=== PATIENT | female | born 1980 | race Caucasian/White ===

== ENCOUNTER 2017-02-24 11:32 | Emergency (ER) | payer SELFPAY ==
[~2017-02-24 11:32] MED LIST: AMOX1TAB61 PO; ARIP10TA9 PO; ARIP15TA36 PO; AZIT250T PO; CEPH-264 PO; ESCITALOPRAM OX10 MG PO; HYDR-971 PO; LAMO100T PO; METF500T4 PO; PRED50TA PO
[2017-02-24 11:35] VITALS: BP 165/110
[2017-02-24] MEDS ORDERED: HYDROmorphone PF 1 MG/ML DISP.SYRIN IM ONE (12:15)
[2017-02-24] MEDS ORDERED: HYDR-2758 PO (12:18)
--- NOTE | 2017-02-24 12:18 | PHYS DOC ---
Past History Past Medical History: Bipolar, Other Past Surgical History: Other Alcohol Use: Occasionally Drug Use: None Adult General Chief Complaint Chief Complaint: LOWER BACK PAIN OR INJURY HPI HPI 36-year-old female presenting to the emergency department today after having pain in her lower back that started 24 hours ago. She denies any recent trauma. The pain is sharp worse after heavy lifting nonradiating intermittent and without alleviating factors. She denies urinary incontinence, perineal paresthesias, numbness or weakness in her legs. Review of systems is negative for nausea vomiting fevers chills. All other review of systems is negative unless otherwise noted in history of present illness. ED course: 36-year-old female presenting with lower back pain. Atraumatic. She denied dysuria or polyuria. No symptoms of UTI. test negative. Sounds musculoskeletal in origin. Examination of the back shows no step-offs abrasions lacerations or ecchymosis or fluctuant masses. No cellulitis present. Patient was provided with oral pain medication and subsequent discharged home to follow- up with her PCP. The patient was then discharged home in stable condition to follow up with their primary care physician over the next 2-3 days. They were to return if their symptoms worsened or if they were concerned for any reason. Vqfr-[id number] discharge instructions and return precautions were given. Patient' s questions were answered to their satisfaction. Patient is comfortable plan. Review of Systems Review of Systems SEE ABOVE. Current Medications Current Medications Current Medications Medications (Trade) Dose Ordered Sig/[facility] Start Time Stop Time Status Last Admin Dose Admin Hydromorphone HCl (Dilaudid) 0.5 mg 1X ONCE 02/24/17 12:15 02/24/17 12:16 DC Allergies Allergies Allergies Coded Allergies Type Severity Reaction Last Updated Verified Penicillins Allergy Unknown 03/06/16 Yes carbamazepine Allergy Unknown 03/06/16 Yes latex Allergy Unknown 01/18/16 Yes levetiracetam Allergy Unknown 03/06/16 Yes lidocaine Allergy Unknown SEIZURES 03/06/16 Yes Physical Exam Physical Exam See above Constitutional: Well developed, well nourished, no acute distress, non-toxic appearance. [] HENT: Normocephalic, atraumatic, bilateral external ears normal, oropharynx moist, no oral exudates, nose normal. [] Eyes: PERRLA, EOMI, conjunctiva normal, no discharge. [] Neck: Normal range of motion, no tenderness, supple, no stridor. [] Cardiovascular:Heart rate regular rhythm, no murmur [] Lungs & Thorax: Bilateral breath sounds clear to auscultation [] Abdomen: Bowel sounds normal, soft, no tenderness, no masses, no pulsatile masses. [] Skin: Warm, dry, no erythema, no rash. [] Back: See above Extremities: No tenderness, no cyanosis, no clubbing, ROM intact, no edema. [] Neurologic: Alert and oriented X 3, normal motor function, normal sensory function, no focal deficits noted. [] Psychologic: Affect normal, judgement normal, mood normal. [] Current Patient Data Vital Signs Vital Signs Date Time Temp Pulse Resp B/P (MAP) Pulse Ox O2 Delivery O2 Flow Rate FiO2 02/24/17 11:35 98.0 94 16 98 Room Air EKG EKG [] Radiology/Procedures Radiology/Procedures [] Course & Med Decision Making Course & Med Decision Making Pertinent Labs and Imaging studies reviewed. (See chart for details) [] Dragon Disclaimer Dragon Disclaimer This chart was dictated in whole or in part using Voice Recognition software in a busy, high-work load, and often noisy Emergency Department environment. It may contain unintended and wholly unrecognized errors or omissions. Departure Departure: Impression: Primary Impression: Low back pain Disposition: 01 HOME, SELF-CARE Condition: STABLE Referrals: TOÑO RAMOS APRN (PCP) Patient Instructions: Back Exercises, Effp-ne-[id number], Back Injury Prevention, Qsfq-is-Yvjq, Back Pain, Adult Additional Instructions: Thank you for allowing us to participate in your care today. Followup with your primary care physician in 3 days if your symptoms do not improve. Call your Primary Doctor tomorrow and inform them of your visit today. If you do not have a primary care provider you can ask for a list of our primary care providers. Return to the emergency department you have any new or concerning findings. This should be evaluated by the primary care physician and any necessary consulting services for continued management within a few days after discharge. Return to emergency room if you have any new or concerning symptoms including but not limited to fever, chills, nausea, vomiting, intractable pain, any new rashes, chest pain, shortness of air, uncontrolled bleeding, difficulty breathing, and/or vision loss. You may have been prescribed medication that can change in your level of thinking and ability to operate machinery. These medications include hydrocodone and Ativan. Also, Benadryl has been known to do this as well. Be sure to check with your pharmacist and ask if the medications you've prescribed can affect your level of consciousness. I recommend not operating heavy machinery or driving while on medication such as these. Scripts Hydrocodone Bit/Acetaminophen (HYDROCODONE-APAP 5-325 ) 1 Each Tablet 1 TAB PO PRN Q6HRS Y for PAIN, #10 TAB 0 Refills Prov: ANIRUDH CHIN MD 02/24/17 ANIRUDH CHIN MD Feb 24, 2017 12:18
== END 2017-02-24 12:33 ==
LOC: ER 11:32
DX: M54.5 Low back pain (principal); Z88.0 Allergy status to penicillin; Z88.8 Allergy status to other drugs, medicaments and biological substances; Z88.4 Allergy status to anesthetic agent; Z91.040 Latex allergy status
CPT/HCPCS: 81025; 99283

== ENCOUNTER → 2017-03-01 | Outpatient (CLI) | payer OTHER ==
[2017-02-24 11:35] VITALS: BP 165/110
[~2017-03-01] MED LIST changes: +HYDR-2758 PO
--- NOTE | 2017-03-01 15:51 | RAD ---
Examination: 2 views of the sacrum and coccyx History: History of pain in the tailbone Comparison: None available Findings: The alignment of the sacrum and coccyx grossly appears unremarkable. No evidence of displaced fracture of the sacrum or the coccyx identified. There is sclerotic appearance of the bilateral sacral iliac joints, right greater than left. Impression: 1. No acute fracture. 2. Sclerotic appearance of the bilateral sacral leg joints, nonspecific sacroiliitis is a possibility. Correlate clinically. MRI follow-up may be useful.
== END | disposition home or self-care (01) ==
LOC: DXRAD 15:28
PROVIDERS: ATTEND Nurse Practitioner
DX: M53.3 Sacrococcygeal disorders, not elsewhere classified (principal)
CPT/HCPCS: 72220

== ENCOUNTER → 2017-04-23 | Outpatient (CLI) | payer OTHER ==
--- NOTE | 2017-04-23 16:44 | RAD ---
AP view and bilateral oblique of the pelvis History: Bilateral SI joint pain. Findings: The SI joints are unremarkable. Symphysis pubis is unremarkable. No acute fracture or dislocation or diastases or osteolytic process is evident. Hip joints are symmetric. Mild levoscoliosis of the lumbar spine. IMPRESSION: Unremarkable radiographic study of the pelvis.
== END | disposition home or self-care (01) ==
LOC: DXRAD 11:57
PROVIDERS: ATTEND Family Medicine
DX: M53.3 Sacrococcygeal disorders, not elsewhere classified (principal); M25.552 Pain in left hip; M25.551 Pain in right hip; M41.86 Other forms of scoliosis, lumbar region
CPT/HCPCS: 72170

== ENCOUNTER → 2017-05-14 | Outpatient (CLI) | payer OTHER | END | disposition home or self-care (01) | LOC: LAB 21:26 | PROVIDERS: ATTEND Family Medicine | DX: E11.9 Type 2 diabetes mellitus without complications (principal); I10 Essential (primary) hypertension; Z72.89 Other problems related to lifestyle | CPT/HCPCS: 87086 ==

== ENCOUNTER 2017-08-25 12:53 | Emergency (ER) | payer SELFPAY ==
[~2017-08-25] VITALS: Ht 162.6 cm; Wt 126.0 kg
--- NOTE | 2017-08-25 13:10 | PHYS DOC ---
General Chief Complaint: CHEST PAIN Stated Complaint: CHEST PAIN Time Seen by MD: 13:08 Source: patient, EMS Exam Limitations: no limitations Problems: History of Present Illness Initial Comments 36-year-old female brought to the ED by EMS with left lower rib pain. Patient states she works at [employer] and that she was lifting and rolling heavy patient approximately 90 minutes ago when she felt a twinge in her left lower rib cage and upper abdominal musculature. States this was followed by pain in that area worse with deep breaths and certain movements and relieved with rest. No concomitant diaphoresis, nausea, dizziness, or neck radiation. Received aspirin and nitroglycerin prior to arrival no relief on her symptoms. In the emergency department patient can localize the discomfort by lifting her own left breast and pushing on her lower left anterior costal margin directly reproducing chief complaint. Diabetes is her lone risk for coronary artery disease. Overall the patient is pleasant and cooperative she is laughing and joking and does not appear to be in any distress. From the outset her symptoms appear to be musculoskeletal in origin however will initiate workup. Normal vital signs on arrival. Timing/Duration: 1-3 hours Severity: moderate Modifying Factors: worse with movement, improves with rest Associated Symptoms: chest pain Allergies: Coded Allergies: Penicillins (Verified Allergy, Unknown, 03/06/16) carbamazepine (Verified Allergy, Unknown, 03/06/16) latex (Verified Allergy, Unknown, 01/18/16) levetiracetam (Verified Allergy, Unknown, 03/06/16) lidocaine (Verified Allergy, Unknown, SEIZURES, 03/06/16) Past Medical History Medical History: other (asthma, bipolar disorder, depression, diabetes, seizure ) Surgical History: other Social History Smoker: non-smoker Alcohol: occasionally Drugs: none Review of Systems Constitutional: denies chills, denies diaphoresis, denies fever, denies malaise EENTM: denies blurred vision, denies throat pain, denies throat swelling, denies mouth pain Respiratory: denies cough, denies orthopnea, denies shortness of breath, denies stridor, denies wheezing Cardiovascular: see HPI, denies edema, denies palpitations, denies syncope Gastrointestinal: see HPI, denies diarrhea, denies nausea, denies vomiting Genitourinary: denies dysuria, denies frequency, denies hematuria Musculoskeletal: denies back pain, denies joint pain, denies joint swelling, muscle pain, muscle stiffness, denies neck pain Psychiatric/Neurological: see HPI, denies headache, denies numbness, denies paresthesia, denies weakness Hematologic/Lymphatic: denies blood clots, denies easy bleeding, denies easy bruising Physical Exam General Appearance: no apparent distress, obese Eyes: bilateral eye normal inspection, bilateral eye PERRL, bilateral eye EOMI Ear, Nose, Throat: hearing grossly normal, normal ENT inspection, normal pharynx Neck: non-tender, supple Respiratory: normal breath sounds, no respiratory distress, other (chief complaint reliably reproduced with palpation of the left lower costal cartilage) Cardiovascular: normal peripheral pulses, regular rate, rhythm Gastrointestinal: non tender, soft Back: no CVA tenderness, no vertebral tenderness Extremities: non-tender, normal inspection 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 PATIENT: GINA HART ACCOUNT: [id number] : 1980 LOCATION: ER AGE: 36 SEX: F EXAM STATUS: REG ER ORD. PHYSICIAN: CLYDE DIAZ DO REASON: L lateral rib pain PROCEDURE: CHEST PA & LATERAL PA and lateral chest. History: Left-sided pain rib pain, history of appendectomy asthma PA and lateral views were taken of the chest. Lungs are free of infiltrates. Heart is normal in size without heart failure. There is no effusion. There is no pneumothorax. Impression: 1. No acute chest disease. DICTATED AND SIGNED BY: LOUIS CEBALLOS MD DATE: 08/25/17 [id number] CC: CHRIS FARIA; CLYDE DIAZ DO ~ 1440: Lab studies unremarkable, patient rechecked pain symptoms have completely resolved with Toradol 30 mg IV. I did discuss the possibility for observation admission and the patient refused I'm in agreement with her. Discussed over-the- counter prescription medications, heating pad and other therapeutic modalities, signs and symptoms to monitor and indications for urgent return to the department. Discussed close PCP follow-up patient's questions were answered to her satisfaction. She expressed agreement and understanding with treatment plan and left in good condition. Departure Time of Disposition: 14:40 Disposition: 01 HOME, SELF-CARE Diagnosis: costochondritis Condition: IMPROVED Patient Instructions: Costochondritis, [id number] Additional Instructions: Please review the patient education materials given by ED staff. Off work through August 28. Keep activity to "pain free." [id number] ibuprofen 600 mg every 6 hours for discomfort. Heating pad to affected area 15-20 minutes 4-6 times daily followed by gentle stretching. Follow-up with your doctor in 7-10 days for recheck. Return to the ED with new or changing symptoms. CLYDE DIAZ DO Aug 25, 2017 13:10
[2017-08-25] MEDS ORDERED: IV NORMAL SALINE 1,000ML 1,000 ML IV SCH (13:42)
--- NOTE | 2017-08-25 13:46 | EKG ---
[address] [address] Test Date: 2017-08-25 Test Time: 12:59:51 Pat Name: GINA HART Department: Room: Gender: F Dentures Lab Technician: PETTY : 1980 Requested By: CLYDE DIAZ Order Number: [id number] Reading MD: Measurements Intervals [place] Rate: 74 P: 0 PA: 174 QRS: 11 QRSD: 78 T: 10 QT: 374 QTc: 420 Interpretive Statements SINUS RHYTHM NO SPECIFIC ECG ABNORMALITIES RI6.01 No previous ECG available for comparison
[2017-08-25 13:53] LABS: BASO % 0 % (0-3); EOS # 0.1 x10^3/uL (0.0-0.7); EOS % 1 % (0-3); HEMATOCRIT 40.2 % (36.0-47.0); HEMOGLOBIN 13.1 g/dL (12.0-15.5); LYMPH # 2.2 x10^3/uL (1.0-4.8); LYMPH % 23 % (24-48); MEAN CORPUSCULAR HEMOGLOBIN 28 pg (25-35); MEAN CORPUSCULAR HGB CONC 33 g/dL (31-37); MEAN CORPUSCULAR VOLUME 85 fL (79-100); MONO # 0.5 x10^3/uL (0.0-1.1); MONO % 5 % (0-9); NEUT # 6.7 x10^3uL (1.8-7.7); NEUT % 70 % (31-73); PLATELET COUNT 270 x10^3/uL (140-400); RED BLOOD COUNT 4.74 x10^6/uL (3.50-5.40); RED CELL DISTRIBUTION WIDTH 14.2 % (11.5-14.5); WHITE BLOOD COUNT 9.5 x10^3/uL (4.0-11.0)
[2017-08-25 14:00] LABS: ALBUMIN 3.6 g/dL (3.4-5.0); ALBUMIN/GLOBULIN RATIO 0.9 (1.0-1.7); CALCIUM 8.6 mg/dL (8.5-10.1); CREATININE 0.9 mg/dL (0.6-1.0); GFR 71.7; POTASSIUM 3.6 mmol/L (3.5-5.1); TOTAL BILIRUBIN 0.1 mg/dL (0.2-1.0); TOTAL PROTEIN 7.6 g/dL (6.4-8.2)
[2017-08-25] MEDS ORDERED: ASPIRIN 81 MG TAB.CHEW PO ONE (14:00)
[2017-08-25] MEDS ORDERED: KETOROLAC 30 MG/ML VIAL. IV ONE (14:00)
[2017-08-25 14:02] LABS: AMPHETAMINE/METHAMPHETAMINE NEG (NEG); BARBITURATES NEG (NEG); BENZODIAZEPINES NEG (NEG); CANNABINOIDS NEG (NEG); COCAINE NEG (NEG); METHADONE NEG (NEG); OPIATES NEG (NEG); PHENCYCLIDINE NEG (NEG)
[2017-08-25 14:04] LABS: CLARITY,URINE CLEAR; COLOR,URINE YELLOW
[2017-08-25 14:05] LABS: BACTERIA,URINE FEW /HPF (0-FEW); BILIRUBIN,URINE NEG (NEG); GLUCOSE,URINE NEG (NEG); NITRITE,URINE NEG (NEG); RBC,URINE RARE /HPF (0-2); SQUAMOUS EPITHELIAL CELL,UR OCC /LPF; UROBILINOGEN,URINE 0.2 mg/dL (0.2 mg/dL); WBC,URINE RARE /HPF (0-4)
--- NOTE | 2017-08-25 14:11 | RAD ---
PA and lateral chest. History: Left-sided pain rib pain, history of appendectomy asthma PA and lateral views were taken of the chest. Lungs are free of infiltrates. Heart is normal in size without heart failure. There is no effusion. There is no pneumothorax. Impression: 1. No acute chest disease.
[2017-08-25 15:00] VITALS: BP 130/88
== END 2017-08-25 15:00 | disposition home or self-care (01) ==
LOC: ER 12:53
DX: M94.0 Chondrocostal junction syndrome [Tietze] (principal); E11.9 Type 2 diabetes mellitus without complications; J45.909 Unspecified asthma, uncomplicated; F31.9 Bipolar disorder, unspecified; Z88.0 Allergy status to penicillin; Z88.8 Allergy status to other drugs, medicaments and biological substances; Z88.4 Allergy status to anesthetic agent; Z91.040 Latex allergy status
CPT/HCPCS: 36415; 71046; 80053; 80307; 81001; 82550; 83690; 84484; 85025; 93005; 96361; 96374; 99285; J1885; G0479; J7030